=== PATIENT | male | born 1975 | race Caucasian/White ===

== ENCOUNTER 2021-06-08 00:20 | Emergency (ER) | payer BC ==
[~2021-06-08 00:20] MED LIST: DOLOPHINE HCL10 MG PO; FOLIC ACID 1 MG1 MG PO; NORVASC5 MG PO; PREVACID30 MG PO; PRINIVIL20 MG PO; TYLENOL 500 MG500 MG PO; VITAMIN B-1100 MG/ML IVP; ZOFRAN4 MG PO
[2021-06-08 01:19] LABS: HEMOGLOBIN 14.9 gm/dl (14.0-17.5); RED BLOOD COUNT 4.39 M/UL (4.20-5.50); WHITE BLOOD COUNT 6.2 K/UL (4.5-11.0)
[2021-06-08 01:57] LABS: BUN/CREATININE RATIO 45 (0-10)
== END 2021-06-08 05:31 ==
LOC: ER1 00:20
PROVIDERS: Physician Assistant Medical
DX: R10.11 Right upper quadrant pain (principal); R11.0 Nausea; R10.13 Epigastric pain; I10 Essential (primary) hypertension; Z20.822 Contact with and (suspected) exposure to COVID-19
CPT/HCPCS: 80053; 80307; 81001; 82550; 82553; 83605; 83690; 84484; 85025; 93005; 96365; 96375; 96376; 99285; G0480; J1170; J2270; J2405; J2543; Q9967; U0002